=== PATIENT | female | born 2000 | race Two or more races ===

== ENCOUNTER 2018-02-09 17:49 | Emergency (ER) | payer OTHER ==
[~2018-02-09] VITALS: Ht 165.1 cm; Wt 52.6 kg
== END 2018-02-09 20:07 | disposition home or self-care (01) ==
LOC: ER 17:49
DX: S01.81XA Laceration without foreign body of other part of head, initial encounter (principal); W18.39XA Other fall on same level, initial encounter; Y93.89 Activity, other specified; Y92.832 Beach as the place of occurrence of the external cause; Y99.8 Other external cause status